=== PATIENT | male | born 1960 | race Caucasian/White ===

== ENCOUNTER 2020-06-02 12:43 | Emergency (ER) | payer OTHER, SELFPAY ==
[2020-06-02] VITALS (10 sets, daily range): BP systolic 163–197; BP diastolic 85–111; PULSE 59–85; RESP 15–17; TEMP 36.6–36.8; O2SAT 96–99; BMI 42.7
--- NOTE | 2020-06-02 13:54 | PC.NURSE ---
patient states he does not have a list of medications with him and he takes too numerous to count . Pt reports he uses the [facility].
--- NOTE | 2020-06-02 13:56 | XR_ITS ---
PROCEDURE: XR CHEST PORTABLE CLINICAL HISTORY: chest tightness COMPARISON: No exams were available for comparison FINDINGS: Mild cardiomegaly without failure. The lungs are clear without infiltrates, suspicious nodules, or pleural effusions. No acute bony abnormalities. IMPRESSION: Cardiomegaly otherwise negative Dictated by: Corbin Washington MD 06/02/2020 14:50 Corbin Washington MD in [place] 06/02/2020 14:50
--- NOTE | 2020-06-02 14:12 | ECG_ITS ---
APPROVED REPORT Exam: Resting ECG HR:59 bpm ECG Measurements Heart Rate 59 AXES NJ 158 P 30 QRSd 96 QRS 30 QT 444 T 35 QTc 439 Conclusion Sinus bradycardia Otherwise normal ECG Electronically signed by : Toño Ayala, 06/03/2020 07:08:22
[2020-06-02 14:20] LABS: Chloride 104 mmol/L (98-107)
[2020-06-02 14:21] LABS: Potassium 4.4 mmoL/L (3.5-5.1); Sodium 140 mmol/L (136-145)
[2020-06-02 14:24] LABS: Anion Gap 10.4 mEq/L (5-15); Blood Urea Nitrogen 17 mg/dl (9-20); Calcium 8.7 mg/dl (8.4-10.2); Carbon Dioxide 30 mmol/L (22.0-30.0); Creatinine Clearance Estimated 84 mL/min (50-200); Estimated Glomerular Filt Rate 76 ml/min (>60); GFR (African American) 92 ML/MIN (>60); Glucose 90 mg/dl (74-100)
[2020-06-02 14:29] LABS: Basophils # 0.1 K/mm3 (0-0.2); Basophils % 0.7 % (0.1-2.0); Eosinophils # 0.3 K/mm3 (0.0-0.4); Eosinophils % 4.3 % (0.1-12.0); Hematocrit 43.5 % (42.0-52.0); Hemoglobin 14.8 g/dL (14.1-18.0); Lymphocytes # 2.1 K/mm3 (0.7-4.5); Lymphocytes % 29.8 % (10-50); Mean Corpuscular Hemoglobin 28.7 pg (27.0-31.2); Mean Corpuscular Volume 84.4 fl (80-94); Mean Platelet Volume 7.7 fl (7.4-10.4); Monocytes # 0.5 K/mm3 (0.1-1.0); Monocytes % 6.5 % (1.7-9.3); Neutrophils # 4.1 K/mm3 (1.8-7.8); Neutrophils % 58.7 % (37.0-80.0); Platelet Count 204 K/mm3 (142-424); Red Blood Count 5.16 M/mm3 (4.60-6.20); Red Cell Distribution Width 13.6 % (11.5-17.5)
[2020-06-02 14:33] LABS: NT Pro Brain Natriuretic Pep. 91.9 pg/mL (0-125)
--- NOTE | 2020-06-02 15:19 | [facility]H.EDGENADL ---
ED Disposition Clinical Impression: Nonspecific chest pain Hypertension Qualifiers: Hypertension type: essential hypertension Qualified Code(s): I10 - Essential (primary) hypertension Disposition: Home, Self-Care Condition on Discharge: Good Instructions: Treatments for High Blood Pressure: More Than Just Taking a Pill Referrals: Coy Ayala [Primary Care Provider] - - Critical Care Critical Care Time: No Attestation: On 06/02/20, the high probability of a clinically significant, sudden or life threatening deterioration of the following system(s) required my full and direct attention, intervention and personal management. The time I documented below is in addition to time spent performing reported procedures but includes the following listed in this critical care notation. Medical Decision Making - Medical Records Medical records reviewed: Yes: I reviewed the patient's medical records. - Ad Inquiry Pt receiving controlled substance: No Vital Signs: 06/02/20 12:43 06/02/20 13:15 06/02/20 13:43 Temperature 98.2 F 98.2 F 98.2 F Temperature Source Oral Oral Oral Pulse Rate [Right Brachial] 85 69 70 Respiratory Rate 15 15 16 Blood Pressure [Right Arm] 195/85 H 174/90 H 168/96 H Blood Pressure Mean [Right Arm] 121 118 120 Blood Pressure Source [Right Arm] Automatic Cuff Automatic Cuff Blood Pressure Position [Right Arm] Sitting 02 Sat by Pulse Oximetry 98 96 96 Oxygen Delivery Method Room Air Room Air Room Air 06/02/20 14:30 06/02/20 15:30 06/02/20 16:00 Temperature Temperature Source Pulse Rate [Right Brachial] 59 L 63 61 Respiratory Rate 16 15 Blood Pressure [Right Arm] 165/100 H 164/96 H 163/94 H Blood Pressure Mean [Right Arm] 121 118 117 Blood Pressure Source [Right Arm] Blood Pressure Position [Right Arm] Supine 02 Sat by Pulse Oximetry 97 98 Oxygen Delivery Method Room Air 06/02/20 17:00 06/02/20 17:19 06/02/20 17:30 Temperature Temperature Source Pulse Rate [Right Brachial] 60 63 68 Respiratory Rate 15 17 15 Blood Pressure [Right Arm] 192/111 H 181/111 H 197/104 H Blood Pressure Mean [Right Arm] 138 134 135 Blood Pressure Source [Right Arm] Automatic Cuff Blood Pressure Position [Right Arm] Supine 02 Sat by Pulse Oximetry 98 99 99 Oxygen Delivery Method Room Air Room Air Room Air - Lab Data Lab Results 06/02/20 13:59: WBC 7.0, RBC 5.16, Hgb 14.8, Hct 43.5, MCV 84.4, MCH 28.7, MCHC 34.0, RDW 13.6, Plt Count 204, MPV 7.7, Neut % (Auto) 58.7, Lymph % (Auto) 29.8, [place] % (Auto) 6.5, Eos % (Auto) 4.3, Baso % (Auto) 0.7, Neut # (Auto) 4.1, Lymph # (Auto) 2.1, [place] # (Auto) 0.5, Eos # (Auto) 0.3, Baso # (Auto) 0.1 06/02/20 13:59: Sodium 140, Potassium 4.4, Chloride 104, Carbon Dioxide 30, Anion Gap 10.4, BUN 17, Creatinine 1.00, Estimated Creat Clear 84, Estimated GFR 76, Est GFR ( Amer) 92, Glucose 90, Calcium 8.7, Troponin I < 0.01 06/02/20 13:59: NT-Pro-B Natriuret Pep 91.9 06/02/20 16:57: Troponin I < 0.01 Result diagrams: 06/02/20 13:59 06/02/20 13:59 Orders (Tests/Meds): ED MEDICATIONS Discontinued Medications Generic Name Dose Route Start Last Admin Trade Name Kenjiq PRN Reason Stop Dose Admin Clonidine HCl 0.2 mg 06/02/20 17:44 Clonidine 0.2mg Tablet PO 06/02/20 17:45 ONCE ONE Hydralazine HCl 10 mg 06/02/20 17:00 06/02/20 17:03 Hydralazine 20mg/Ml Vial IV 06/02/20 17:01 10 mg ONCE ONE Administration Hydralazine HCl 10 mg 06/02/20 17:23 06/02/20 17:28 Hydralazine 20mg/Ml Vial IV 06/02/20 17:24 10 mg ONCE ONE Administration ORDERS Category Date Time Status Troponin I Q3H Lab 06/02/20 20:00 Ordered - ECG Data Tracing #1 ECG initial impression date: 06/02/20 ECG initial impression time: 14:15 ECG normal with no acute: arrhythmias, ischemia, conduction abnormalities, chamber hypertrophy Arrhythmias present: sinus nirali - Reevaluation(s) Time: 17:50 Reevaluation #1:
--- NOTE | 2020-06-02 15:34 | PC.NURSE ---
updated patient and on plan of care. no needs voiced at this time. still c/o chest tightness but states it is not pain . waiting on repeat troponin at this time, MD aware.
[2020-06-02 15:42] LABS: Troponin I < 0.01 ng/ml (0.00-0.034)
--- NOTE | 2020-06-02 16:58 | PC.NURSE ---
repeat troponin sent to lab
[2020-06-02 17:28] LABS: Troponin I < 0.01 ng/ml (0.00-0.034)
== END 2020-06-02 18:18 | disposition home or self-care (01) ==
PROVIDERS: Emergency Provider Emergency Medicine; PCP Internal Medicine
DX: R07.89 Other chest pain (principal); I10 Essential (primary) hypertension; Z79.899 Other long term (current) drug therapy
CPT/HCPCS: 71045; 80048; 83880; 84484; 85025; 93005; 96374; 96376; 99283